=== PATIENT | male | born 1970 | race Caucasian/White ===

== ENCOUNTER 2019-01-10 20:50 | Emergency (ER) | payer BC, OTHER ==
[2019-01-10] MEDS ORDERED: HYDROmorphone 1 MG/ML 1 ML SYRINGE IVP STA (21:12)
[2019-01-10] MEDS ORDERED: DIPH,PERTUS(ACELL)TETVAC-LF 0.5 ML VIAL IM ONE (21:15)
[2019-01-10] MEDS ORDERED: LIDOCAINE 1% INJ 10MG/ML (20 ML MDV) SQ STA (21:20)
--- NOTE | 2019-01-10 21:57 | XR ---
EXAMINATION TYPE: XR hand complete RT DATE OF EXAM: 01/10/2019 COMPARISON: NONE HISTORY: Laceration TECHNIQUE: 3 views FINDINGS: There is laceration deformity of the end of the index finger and middle finger with fractur es of the tuft of the distal phalanx of the index finger and middle finger. There are multiple small opacities in the tip of the index finger consistent with foreign bodies. There is no dislocation. IMPRESSION: Multiple foreign bodies. Laceration deformity. Tuft fractures.
--- NOTE | 2019-01-10 22:08 | ED ---
General Adult HPI - General Chief complaint: Extremity Injury, Upper Stated complaint: Hand Injury Time Seen by Provider: 01/10/19 21:08 Source: patient, RN notes reviewed, old records reviewed Mode of arrival: ambulatory Limitations: no limitations - History of Present Illness Initial comments: 48-year-old male patient with no pertinent past medical history fully vaccinated presents to ED complaining of right hand injury. 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 Patient reports that he put his hand in the machine and was caught in it. Patient has a injury to the distal aspect of his first and second digits of his right hand. Denies any other complaints. Systemic: Pt denies fatigue, fever/chills, rash. Pt denies weakness, night sweats, weight loss. Neuro: Pt denies headache, visual disturbances, syncope or pre-syncope. HEENT: Pt denies ocular discharge or irritation, otalgia, rhinorrhea, pharyngitis or notable lymphadenopathy. Cardiopulmonary: Pt denies chest pain, SOB, heart palpitations, dyspnea on exertion. Abdominal/GI: Pt denies abdominal pain, n/v/d. : Pt denies dysuria, burning w/ urination, frequency/urgency. Denies new onset urinary or bowel incontinence. MSK: Pt denies myalgia, loss of strength or function in extremities. Neuro: Pt denies new onset weakness, paresthesias. - Related Data Previous Rx's Medication Instructions Recorded Cephalexin [Keflex] 500 mg PO Q6HR 7 Days #28 cap 01/10/19 Allergies Allergy/AdvReac Type Severity Reaction Status Date / Time No Known Allergies Allergy Verified 01/10/19 20:56 Review of Systems ROS Statement: Those systems with pertinent positive or pertinent negative responses have been documented in the HPI. ROS Other: All systems not noted in ROS Statement are negative. Past Medical History Past Medical History: No Reported History History of Any Multi-Drug Resistant Organisms: None Reported Past Surgical History: Appendectomy Past Psychological History: No Psychological Hx Reported Smoking Status: Never smoker Past Alcohol Use History: None Reported Past Drug Use History: None Reported General Exam - General Exam Comments Initial Comments: Constitutional: NAD, AOX3, Pt has pleasant affect. HEENT: NC/AT, trachea midline, neck supple, no lymphadenopathy. Posterior pharynx non erythematous, without exudates. External ears appear normal, without discharge. Mucous membranes moist. Eyes PERRLA, EOM intact. There is no scleral icterus. No pallor noted. Cardiopulmonary: RRR, no murmurs, rubs or gallops, no JVD noted. Lungs CTAB in anterior and posterior dobbs. No peripheral edema. Abdominal exam: Abdomen soft and non-distended. Abdomen non-tender to palpation in all 4 quadrants. Bowel sounds active in LLQ. No hepatosplenomegaly. No ecchymosis Neuro: CN II-XII grossly intact. No nuchal rigidity. No raccon eyes, no jolley sign, no hemotympanum. No cervical spinal tenderness. MSK: Soft tissue defect injury noted to distal aspects of second and third digits. Injury involving the distal phalanx, does not involve the PIP joint.. Removed skin, no exposed bone. Nail involvement. Full active range of motion of digit. Neurovascularly intact. Compartment is soft. No posterior calf tenderness bilaterally, homans sign negative bilaterally. Posterior tibialis and radial pulse +2 bilaterally. Sensation intact in upper and lower extremities. Full active ROM in upper and lower extremities, 5/5 stregnth. Limitations: no limitations Course Vital Signs 01/10/19 01/10/19 20:52 21:55 Temperature 98.6 F Pulse Rate 99 Respiratory 16 Rate Blood Pressure 118/60 O2 Sat by Pulse 94 L Oximetry Medical Decision Making - Medical Decision Making 48-year-old male patient with no pertinent past medical history fully vaccinated presents to ED complaining of right hand injury. 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 Patient reports that he put his hand in the machine and was caught in it. Patient has a injury to the distal aspect of his first and second digits of his right hand. Denies any other complaints. Pt VSS, afebrile. Soft tissue defect injury noted to distal aspects of second and third digits. Injury involving the distal phalanx, does not involve the PIP joint.. Removed skin, no exposed bone. Nail involvement. Full active range of motion of digit. Neurovascularly intact. Compartment is soft. Plain films displayed laceration deformity and an index and middle fingers with fractures of the zhanna of the distal phalanx of the index and middle finger. Multiple small opacities. This read was discussed with radiologist Dr. Wright agreed that on lateral films these possible foreign bodies do not appear more radiopaque than the bone and could be bone fragments. Wound was vigorously irrigated. Cleaned and bandaged. Straight finger splints were placed on both digits. Patient was administered Ancef and tetanus was updated. Patient was discharged with pain medication, antibiotics and close outpatient follow-up with orthopedics tomorrow. Case discussed and pt seen by Dr. Arcos. Disposition Clinical Impression: Laceration, Finger fracture Disposition: HOME SELF-CARE Condition: Stable Instructions (If sedation given, give patient instructions): Finger Fracture (ED) Additional Instructions: Call orthopedic consult first thing tomorrow morning. Take antibiotics as directed. Return to ER immediately if condition worsens in any way. Prescriptions: Cephalexin [Keflex] 500 mg PO Q6HR 7 Days #28 cap Is patient prescribed a controlled substance at d/c from ED?: No Referrals: Kyle Washington MD [Primary Care Provider] - 1-2 days Ger Lou MD [STAFF PHYSICIAN] - 1-2 days Eddie Hanson DO [Medical Doctor] - 1-2 days
[2019-01-10] MEDS ORDERED: CEPHALEXIN 500MG STARTER PACK 4 CAP BTL PO STA (22:40)
--- NOTE | 2019-01-10 23:00 | ED ---
Disposition Clinical Impression: Laceration, Finger fracture Disposition: HOME SELF-CARE Condition: Stable Instructions (If sedation given, give patient instructions): Finger Fracture (ED) Additional Instructions: Call orthopedic consult first thing tomorrow morning. Take antibiotics as directed. Return to ER immediately if condition worsens in any way. Prescriptions: Cephalexin [Keflex] 500 mg PO Q6HR 7 Days #28 cap Hydrocodone/Acetaminophen [[place] 5-325] 1 each PO Q6HR PRN 3 Days #12 tab PRN Reason: Pain Is patient prescribed a controlled substance at d/c from ED?: Yes When asked, does pt state using other controlled substances?: No If prescribed controlled substance>3 days was MAPS reviewed?: Prescribed <3 Days If opioid is for acute pain is fill amount 7 days or less?: Yes If Rx opioid, was Start Talking consent form obtained?: Yes Referrals: Kyle Washington MD [Primary Care Provider] - 1-2 days Eddie Hanson DO [Medical Doctor] - 1-2 days Ger Lou MD [STAFF PHYSICIAN] - 1-2 days
[2019-01-10 23:20] VITALS: BP 100/61; PULSE 69; RESP 18; TEMP 98
== END 2019-01-10 23:20 | disposition home or self-care (01) ==
LOC: EC 20:50
DX: S62.630B Displaced fracture of distal phalanx of right index finger, initial encounter for open fracture (principal); S62.632B Displaced fracture of distal phalanx of right middle finger, initial encounter for open fracture; Z23 Encounter for immunization; W31.1XXA Contact with metalworking machines, initial encounter; Y93.89 Activity, other specified
CPT/HCPCS: 73130; 90715; 99284; 96365; 96375; 64450; 90471; J0690; J2001; J1170